=== PATIENT | female | born 1955 | race Caucasian/White ===

== ENCOUNTER → 2022-06-07 | Outpatient (CLI) | payer MEDICARE, OTHER ==
--- NOTE | 2022-06-07 14:28 | BD ---
EXAMINATION TYPE: Axial Bone Density DATE OF EXAM: 06/07/2022 COMPARISON: NONE CLINICAL HISTORY: 66 years year old Female. ICD-10 CODE: M81.0 OSTEOPOROSIS Height: 65.5 IN Weight: 161 LBS FRAX RISK QUESTIONS: History of Fracture in Adulthood: RT WRIST FX AGE 63; LT WRIST FX AGE 65 RISK FACTORS HISTORY OF: History of Wrist Fracture: RT WRIST FX AGE 63; LT WRIST FX AGE 65 Surgery to Wrist (right/left): RT WRIST SURGERY AGE 63; LT WRIST SURGERY AGE 65 Active: YES Postmenopausal woman: AGE 48 MEDICATIONS: Additional Medications: COQ10; Additional History: MOLOR CANCER WITH CHEMO EXAM MEASUREMENTS: Bone mineral densitometry was performed using the [employer] System. Bone mineral density as measured about the Lumbar spine is: ----- L1-L4(G/cm2): 0.807 T Score Values are as follows: ----- L1: -3.9 ----- L2: -3.7 ----- L3: -3.0 ----- L4: -2.5 ----- L1-L4: -3.1 Bone mineral density BASELINE Bone mineral density about the R hip (g/cm2): 0.716 Bone mineral density about the L hip (g/cm2): 0.751 T Score values are as follows: -----R Neck: -2.3 -----L Neck: -2.1 -----R Total: -2.5 -----L Total: -2.6 Bone mineral density BASELINE FRAX%s: The graph provided illustrates a 20.5 chance for a major osteoporotic fx and a 4.1 chance for the hips probability for fx in 10 years time. IMPRESSION: Osteoporosis (T Score less than -2.5). There is increased fracture risk and therapy is usually indicated based on age. Re-Screen 1-2 years. NOTE: T-SCORE=SD OF THE YOUNG ADULT MEAN.
--- NOTE | 2022-06-08 13:54 | MM ---
Reason for Exam: Screening (asymptomatic). Last mammogram was performed 15 year(s) and 3 month(s) ago. Patient History: Menarche at age 12. First Full-Term at age 29. Postmenopausal. Maternal grandmother had breast cancer, age 70. Risk Values: Mary 5 year model risk: 1.9%. NCI Lifetime model risk: 6.7%. Prior Study Comparison: 10/04/2001 Bilateral Screening Mammogram, [facility]. 03/19/2007 Bilateral Diagnostic Mammogram, [facility]. 07/23/2008 Bilateral Diagnostic Mammogram, [facility]. Tissue Density: The breast tissue is heterogeneously dense. This may lower the sensitivity of mammography. Findings: Analyzed By CAD. Pattern appears symmetrical. Moles were marked on the right breast. Scattered benign calcifications are present bilaterally. No suspicious groups of microcalcifications, spiculated or lobular masses, architectural distortion or other secondary signs of malignancy are mammographically apparent. Overall Assessment: Benign, BI-RAD 2 Management: Screening Mammogram of both breasts in 1 year. A negative mammogram report should not preclude additional follow up of suspicious palpable abnormalities. Patient should continue monthly self breast exam. A clinical breast exam by your physician is recommended on an annual basis and results should be correlated with mammographic findings. Electronically signed and approved by: Maximino Michelle D.O. Radiologis
== END | disposition home or self-care (01) ==
LOC: RADBDWWP 13:19
PROVIDERS: ATTEND Internal Medicine Geriatric Medicine
DX: Z12.31 Encounter for screening mammogram for malignant neoplasm of breast (principal); M81.0 Age-related osteoporosis without current pathological fracture; Z78.0 Asymptomatic menopausal state; Z80.3 Family history of malignant neoplasm of breast
CPT/HCPCS: 77063; 77067; 77080

== ENCOUNTER 2022-10-18 10:04 | Day surgery (SDC) | payer MEDICARE ==
[2022-10-13 09:38] VITALS: BMI 22.6
[2022-10-18] MEDS ORDERED: LIDOCAINE 1% (10MG/ML) FOR IV START INTRADERMA PRN (10:21)
[2022-10-18] MEDS ORDERED: ONDANSETRON 4 MG/2 ML VIAL IVP PRN (10:21)
[2022-10-18] MEDS ORDERED: LACTATED RINGERS 1,000 ML IV SCH (10:21)
[2022-10-18 10:43] VITALS: RESP 16; TEMP 97.3
[2022-10-18] MEDS ORDERED: PROPOFOL 10 MG/ML 20 ML VIAL IV ONE (11:43)
[2022-10-18] MEDS ORDERED: LIDOCAINE 2% INJ 20 MG/ML (2 ML VIAL) ONE (11:43)
--- NOTE | 2022-10-18 12:08 | P.PCN ---
Date of Procedure: 10/18/22 Procedure(s) Performed: BRIEF HISTORY: Patient is a 66-year-old pleasant male scheduled for an elective colonoscopy as a part of screening for colon cancer/positive cologuard PROCEDURE PERFORMED: Colonoscopy. PREOPERATIVE DIAGNOSIS: Screening for colon cancer/polyps cologuard. IV sedation per Anesthesia. PROCEDURE: After informed consent was obtained, the patient, was brought into the endoscopy unit. IV sedation was administered by Anesthesia under continuous monitoring. Digital rectal examination was normal. Initially the Olympus CF-160 flexible video colonoscope was then inserted in the rectum, gradually advanced into the cecum without any difficulty. Careful examination was performed as the scope was gradually being withdrawn. Ileocecal valve and the appendiceal orifice were visualized and appeared normal. Prep was poor and several areas of the colon.irrigation was performed. Visualized portions of the mucosa of the cecum, ascending colon, transverse colon, descending colon, sigmoid colon, and rectum appeared normal. Retroflexion was performed in the rectum and no lesions were s een. The patient tolerated the procedure well. IMPRESSION: Normal-appearing colon from rectum to cecum with no evidence of colorectal neoplasia . Poor prep in some areas of the colon RECOMMENDATIONS: Findings of this examination were discussed with the patient as well as a family. She was advised to have a repeat screening colonoscopy in 5 years.
[2022-10-18 12:30] VITALS: BP 138/84; PULSE 57
== END 2022-10-18 12:54 | disposition home or self-care (01) ==
LOC: ORWHC2ENDO 10:04
PROVIDERS: ATTEND Internal Medicine Gastroenterology
DX: R19.5 Other fecal abnormalities (principal); E78.5 Hyperlipidemia, unspecified; Z88.2 Allergy status to sulfonamides
CPT/HCPCS: 45378

== ENCOUNTER → 2024-06-28 | Outpatient (CLI) | payer MEDICARE ==
--- NOTE | 2024-06-28 15:05 | MR ---
EXAMINATION TYPE: MR brain wo/w con DATE OF EXAM: 06/28/2024 2:43 PM COMPARISON: None available.. CLINICAL INDICATION: Female, 68 years old with history of R41.3 OTHER AMNESIA; PHH, memory loss. TECHNIQUE: Multi planar, multi sequence imaging was performed through the brain including: T1, T2, In version recovery, susceptibility weighted imaging and gradient echo imaging and Diffusion weighted im aging. The patient was then given intravenous contrast and multi planar, T1 fat-saturation images wer e obtained. IV Contrast: 6 mL Gadavist FINDINGS: Prominence of the ventricles and sulci compatible with at least moderate generalized cerebral volume loss. Diffusion-weighted imaging shows no evidence of restricted diffusion to suggest acute/subacute infarct. Intracranial arterial flow voids are maintained. Midline structures show no abnormality. Sca ttered foci of high T2 signal intensity are seen within the periventricular and subcortical white mat ter compatible with moderate chronic microvascular ischemic disease. The susceptibility weighted imag es do not reveal any evidence for micro-hemorrhage. After administration of gadolinium, no abnormal e nhancement is seen. The bone marrow signal is within normal limits. Paranasal sinuses and mastoid air cells: No significant paranasal sinus disease. Visualized orbits: Orbital contents are intact. IMPRESSION: 1. No evidence of intracranial mass, acute/subacute infarct, or abnormal enhancement. 2. Moderate generalized cerebral volume loss and white matter chronic microvascular ischemic disease. [facility], , 06/28/2024 3:02 PM
== END | disposition home or self-care (01) ==
LOC: RADMRIMAIN 13:45
PROVIDERS: ATTEND Internal Medicine Geriatric Medicine
DX: R41.3 Other amnesia (principal); I67.82 Cerebral ischemia
CPT/HCPCS: 70553; A9585